=== PATIENT | female | born 1945 | race Caucasian/White ===

== ENCOUNTER 2018-01-22 18:19 | Inpatient (IN) | payer OTHER, MEDICARE ==
[2018-01-22 19:36] LABS: PH,URINE 8.5 (4.5-8); URINE APPEARANCE Clear; URINE BILIRUBIN Negative (NEGATIVE); URINE COLOR Yellow; URINE GLUCOSE (UA) Negative (NEGATIVE); URINE KETONE Negative (NEGATIVE); URINE LEUK ESTERASE 3+ (NEGATIVE); URINE NITRITE Negative (NEGATIVE); URINE PROTEIN 2+ (NEGATIVE); URINE UROBILINOGEN 0.2 (0.2-1.0)
--- NOTE | 2018-01-22 19:36 | PDOC ---
History of Present Illness - General History Source: Patient Exam Limitations: No Limitations - History of Present Illness Initial Comments: 01/22/18 19:38 CC: Abdominal cramping HPI: The patient is a 72 year old female, with a significant past medical history of DM, HTN, HLD, and remote history of kidney stone (x1), who presents to the emergency department with, 4 hours of sudden onset abdominal cramping. She describes her cramping as a constant, 10/10, localized to the lower quadrant of her abdomen with an associated subjective fever. Patient notes that she took 2 suppositories (one slipped out) and GasX for her symptoms, without relief. The patient also endorses taking Lysine and Valtrex for her cold sores which she believes has worsened her constipation. Her last BM was yesterday. She denies recent chills, headache or dizziness. She denies recent nausea or vomit. She denies recent dysuria, frequency, urgency or hematuria. She denies recent chest pain or shortness of breath. Allergies: Bacitracin, neomycin, polymyxin B, Sulfa Past surgical history: Hip replacement 09 Social history: Nonsmoker. Denies EtOH use and recreational drug use. <Marleen Woods - Last Filed: 01/22/18 20:32> <Roland Hardy - Last Filed: 01/23/18 05:15> - General Chief Complaint: Pain Stated Complaint: ABDOMINAL CRAMPS Past History <Marleen Woods - Last Filed: 01/22/18 20:32> - Past Medical History COPD: No GI Disorders: Yes HTN: Yes Hypercholesterolemia: Yes Other medical history: HERPETIC LESIONS - Surgical History GI Surgery: Yes (GORDON ANAL FISSURE) - Suicide/Smoking/Psychosocial Hx Smoking History: Never smoked Hx Alcohol Use: No Drug/Substance Use Hx: No Substance Use Type: None <Roland Hardy - Last Filed: 01/23/18 05:15> - Past Medical History Allergies/Adverse Reactions: Allergies Allergy/AdvReac Type Severity Reaction Status Date / Time bacitracin Allergy Unknown Verified 01/22/18 18:47 [From Neosporin ([id number])] neomycin Allergy Unknown Verified 01/22/18 18:47 [From Neosporin ([id number])] polymyxin B Allergy Unknown Verified 01/22/18 18:47 [From Neosporin ([id number])] Sulfa (Sulfonamide Allergy Unknown Verified 01/22/18 18:47 Antibiotics) Home Medications: Ambulatory Orders Apremilast [Otezla] 30 mg PO BID 01/22/18 Aspirin [Ecotrin] 81 mg PO DAILY 01/22/18 Esomeprazole Magnesium [Nexium 24Hr] 20 mg PO HS 01/22/18 Fenofibrate Nanocrystallized [Fenofibrate] 48 mg PO HS 01/22/18 Insulin Detemir [Levemir Flextouch] 54 unit SQ HS 01/22/18 Losartan/Hydrochlorothiazide [Losartan-Hctz 100-25 mg Tab] 1 each PO DAILY 01/22 Lysine 1,000 mg PO DAILY 01/22/18 Metformin HCl [Metformin HCl ER] 500 mg PO BID 01/22/18 Rosuvastatin Calcium [Crestor] 40 mg PO HS 01/22/18 Turm/Ging/Jose/Yuc/Colin/Meron/Hor [Tumersaid Tablet] 1 each PO DAILY 01/22/18 Ubidecarenone/Vit E Acet [Co Q-10 100 mg Softgel] 1 each PO HS 01/22/18 Valacyclovir HCl [Valtrex] 1,000 mg PO DAILY 01/22/18 Review of Systems - Review of Systems Able to Perform ROS?: Yes Comments:: 01/22/18 19:38 ROS: A complete review of 10 out of 10 review of systems is taken and is negative apart from what is previously mentioned below and in the HPI. <Marleen Woods - Last Filed: 01/22/18 20:32> *Physical Exam - Vital Signs Last Vital Signs Temp Pulse Resp BP Pulse Ox 101.2 F H 100 H 18 138/86 97 01/22/18 19:33 01/22/18 18:20 01/22/18 18:20 01/22/18 18:20 01/22/18 18:20 - Physical Exam Comments: 01/22/18 19:43 Vitals: Triage Vital signs reviewed +General Appearance: Warm to touch. no acute distress, well nourished well developed, Head: Atraumatic, normocephalic Neck: Supple;No Nuchal rigidity Chest Wall: Nontender Cardiac: Regular rate and rhythm, no murmurs, no rubs, no gallops, Lungs: Clear to auscultation bilateral, good air movement bilaterally, + Abdomen: RLQ tenderness to palpation. Soft, nondistended, normal bowel sounds Rectal: Exam deferred Extremities: Full range of motion to all extremities, no cyanosis, clubbing, or edema Skin: Warm and dry, no rashes or lesions, no petechiae Neuro: AOX3; Cranial Nerves 2-12 grossly c intact, Strength intact to all extremities, Sensation intact to all extremities, gait normal Psych: normal mood, normal affect <Marleen Woods - Last Filed: 01/22/18 20:32> - Vital Signs Last Vital Signs Temp Pulse Resp BP Pulse Ox 101.2 F H 100 H 18 138/86 97 01/22/18 19:33 01/22/18 18:20 01/22/18 18:20 01/22/18 18:20 01/22/18 18:20 <Roland Hardy - Last Filed: 01/23/18 05:15> Moderate Sedation - Procedure Monitoring Vital Signs: Procedure Monitoring Vital Signs Temperature 101.2 F H 01/22/18 19:33 Pulse Rate 100 H 01/22/18 18:20 Respiratory Rate 18 01/22/18 18:20 Blood Pressure 138/86 01/22/18 18:20 O2 Sat by Pulse Oximetry (%) 97 01/22/18 18:20 <Marleen Woods - Last Filed: 01/22/18 20:32> - Procedure Monitoring Vital Signs: Procedure Monitoring Vital Signs Temperature 101.2 F H 01/22/18 19:33 Pulse Rate 100 H 01/22/18 18:20 Respiratory Rate 18 01/22/18 18:20 Blood Pressure 138/86 01/22/18 18:20 O2 Sat by Pulse Oximetry (%) 97 01/22/18 18:20 <Roland Hardy - Last Filed: 01/23/18 05:15> ED Treatment Course - LABORATORY CBC & Chemistry Diagram: 01/22/18 19:30 01/22/18 19:30 - ADDITIONAL ORDERS Additional order review: Laboratory Results 01/22/18 18:57 Urine Color Yellow Urine Appearance Clear Urine pH 8.5 H Ur Specific [place] 1.020 Urine Protein 2+ H Urine Glucose (UA) Negative Urine Ketones Negative Urine Blood Trace-intact H Urine Nitrite Negative Urine Bilirubin Negative Urine Urobilinogen 0.2 Ur Leukocyte Esterase 3+ H Urine RBC 2-5 Urine WBC 20-40 Ur Epithelial Cells Few Urine Bacteria 3+ <Marleen Woods - Last Filed: 01/22/18 20:32> - LABORATORY CBC & Chemistry Diagram: 01/22/18 19:30 01/22/18 19:30 - ADDITIONAL ORDERS Additional order review: Laboratory Results 01/22/18 18:57 Urine Color Yellow Urine Appearance Clear Urine pH 8.5 H Ur Specific [place] 1.020 Urine Protein 2+ H Urine Glucose (UA) Negative Urine Ketones Negative Urine Blood Trace-intact H Urine Nitrite Negative Urine Bilirubin Negative Urine Urobilinogen 0.2 Ur Leukocyte Esterase 3+ H <Roland Hardy - Last Filed: 01/23/18 05:15> Medical Decision Making - Medical Decision Making 01/22/18 20:32 72 year old female, with a significant past medical history of DM, HTN, HLD, and remote history of kidney stone (x1), who presents to the emergency department with, 4 hours of sudden onset abdominal cramping Plan is to: Blood cultures Rectal temp EKG IV Tylenol Lactic acid Fluids UA/UC <Marleen Woods - Last Filed: 01/22/18 20:32> - Medical Decision Making 72 years old past medical history significant for diabetes hypertension hyperlipidemia with sudden onset lower abdominal discomfort Positive fever elevated white blood cell count mild tachycardia sepsis criteria met, protocol started. Lactic acid within normal limits A CT abdomen pelvis of the abdomen was performed which demonstrated no acute pathology which is discernibly related to the patient's presenting symptoms. Her urinalysis was positive her physical exam was noted for right-sided abdominal pain there was an incidental finding of some very mild hydro-on the left side which does not correlate with the patient's pain on examination Given fever and tachycardia elevated white blood cell count patient was ordered for broad-spectrum antibiotics. Patient has required multiple doses of IV pain medication to control her abdominal pain given her age and comorbidities we'll admit overnight continue antibiotics hydrate and reassess 01/23/18 05:14 <Roland Hardy - Last Filed: 01/23/18 05:15> *DC/Admit/Observation/Transfer - Attestations Scribe Attestion: 01/22/18 19:38 Documentation prepared by Marleen Woods, acting as medical care administrator for Roland Hardy MD. <Marleen Woods - Last Filed: 01/22/18 20:32> - Discharge Dispostion Decision to Admit order: Yes <Roland Hardy - Last Filed: 01/23/18 05:15> Diagnosis at time of Disposition: Abdominal pain Qualifiers: Abdominal location: right lower quadrant Qualified Code(s): R10.31 - Right lower quadrant pain - Discharge Dispostion Condition at time of disposition: Good
[2018-01-22 19:37] LABS: EPI CELLS FEW /HPF; URINE BACTERIA 3+ /hpf (NEGATIVE); URINE WBC 20-40 (0-5)
[2018-01-22] MEDS ORDERED: SODIUM CHLORIDE 0.9% 1000 ML INFUS.BAG IV ONE ×3 (19:37→23:19)
[2018-01-22] MEDS ORDERED: ACETAMINOPHEN 1000 MG/100 ML VIAL (NON FORMULARY) IVPB ONE (19:37)
[2018-01-22] MEDS ORDERED: PIPERACILLIN/TAZOB 3.375 GM 3.375 GM in DEXTROSE 5%-WATER - 50 ML IVPB ONE (19:38)
[2018-01-22] MEDS ORDERED: ACETAMINOPHEN INJECTION 100 ML IVPB ONE (19:55)
[2018-01-22] MEDS ORDERED: PIPERACILLIN/TAZOBACTAM 3.375 GM VIAL IVPB ONE (19:56)
[2018-01-22 20:02] LABS: BASO % 0.5 % (0-2.0); EOS % 1.4 % (0-4.5); HEMATOCRIT 40.1 % (32.4-45.2); HEMOGLOBIN 12.7 GM/dl (10.7-15.3); LYMPH % 12.4 % (8-40); MCHC 31.7 g/dl (32.0-36.0); MEAN CELL VOLUME 85.1 fl (80-96); MEAN PLT VOLUME 8.1 fl (7.5-11.1); MONO % 6.6 % (3.8-10.2); NEUT % 79.1 % (42.8-82.8); PLATELET COUNT 512 K/MM3 (134-434); RBC 4.71 M/mm3 (3.60-5.2); WHITE BLOOD COUNT 13.6 K/mm3 (4.0-10.8)
[2018-01-22 20:11] LABS: ACTIVATED PTT 25.3 SECONDS (25.2-36.5)
[2018-01-22 20:14] LABS: ALK PHOS 56 U/L (32-92); ANION GAP 9 MMOL/L (8-16); BILIRUBIN,TOTAL 0.6 mg/dl (0.2-1.0); BLOOD UREA NITROGEN 23 mg/dl (7-18); CALCIUM 9.9 mg/dl (8.4-10.2); CHLORIDE 99 mmol/L (98-107); CO2 25 mmol/L (22-28); CREATININE 1.6 mg/dl (0.6-1.3); GLUCOSE,RANDOM 132 mg/dl (74-106); POTASSIUM 4.3 mmol/L (3.5-5.1); SGOT/AST 24 U/L (10-42); SGPT/ALT 17 U/L (10-40); SODIUM 133 mmol/L (136-145); TOT PROT 7.5 g/dl (6.4-8.3)
[2018-01-22 20:16] LABS: INR 1.13 (0.82-1.09); PROTHROMBIN TIME (PATIENT) 12.6 SEC (10.2-13.0)
[2018-01-22] MEDS ORDERED: morphine CARPU-JECT 4 MG/1 ML DISP.SYRIN IVPUSH ONE (22:33)
[2018-01-22] MEDS ORDERED: morphine SULFATE 4 MG/ML VIAL ONE (22:37)
[2018-01-23 02:03] VITALS: BMI 27.5
[2018-01-23] MEDS ORDERED: CEFTRIAXONE 1,000 MG in DEXTROSE 5%-WATER - 50 ML IVPB SCH (08:45)
[2018-01-23] MEDS: CEFTRIAXONE 1,000 MG in DEXTROSE 5%-WATER - 50 ML IVPB SCH (09:38)
[2018-01-23] MEDS: ASPIRIN COATED 81 MG TABLET.EC PO SCH (09:38)
[2018-01-23] MEDS ORDERED: LYSINE 1000 MG PO SCH (10:00)
[2018-01-23] MEDS ORDERED: valACYclovir HCL 500 MG TABLET (FP) PO SCH ×2 (10:00)
[2018-01-23] MEDS ORDERED: PATIENT'S OWN MEDICATION (NON-FORMULARY) (Apremilast [Otezla] 30 MG) PO SCH (10:00)
[2018-01-23 11:43] LABS: BASO % 0.5 % (0-2.0); EOS % 1.8 % (0-4.5); HEMATOCRIT 36.5 % (32.4-45.2); HEMOGLOBIN 11.9 GM/dl (10.7-15.3); LYMPH % 14.5 % (8-40); MCHC 32.6 g/dl (32.0-36.0); MEAN CELL VOLUME 85.9 fl (80-96); MEAN PLT VOLUME 7.7 fl (7.5-11.1); MONO % 7.1 % (3.8-10.2); NEUT % 76.1 % (42.8-82.8); PLATELET COUNT 422 K/MM3 (134-434); RBC 4.25 M/mm3 (3.60-5.2); RDW 15.9 % (11.6-15.6); WHITE BLOOD COUNT 9.8 K/mm3 (4.0-10.8)
--- NOTE | 2018-01-23 11:45 | HP ---
CHIEF COMPLAINT: PCP: HISTORY OF PRESENT ILLNESS: Kori Lovelace is a 72 year old female, with a significant past medical history of DM, HTN, HLD, and remote history of kidney stone (x1), who presented to the emergency department last night with, 4 hours of sudden onset abdominal cramping. She describes her cramping as a constant, 10/10, localized to the lower quadrant of her abdomen with an associated subjective fever. ED note reviewed, pt seen in room this morning, pt reports abd pain has decreased in intensity but still present, denies n/v, diarrhea, cold sore noted on upper lip. ER course was notable for: (1)Leukocystosis (2)Febrile (3)+ UA Recent Travel: PAST MEDICAL HISTORY: PAST SURGICAL HISTORY: Social History: Smoking:denies Alcohol:denies Drugs: denies Family History: Allergies bacitracin [From Neosporin ([id number])] Allergy (Unknown, Verified 01/22/18 18:47) neomycin [From Neosporin ([id number])] Allergy (Unknown, Verified 01/22/18 18 :47) polymyxin B [From Neosporin ([id number])] Allergy (Unknown, Verified 18:47) Sulfa (Sulfonamide Antibiotics) Allergy (Unknown, Verified 01/22/18 18:47) HOME MEDICATIONS: Home Medications Medication Instructions Recorded Apremilast [Otezla] 30 mg PO BID 01/22/18 Aspirin [Ecotrin] 81 mg PO DAILY 01/22/18 Esomeprazole Magnesium [Nexium 20 mg PO HS 01/22/18 24Hr] Fenofibrate Nanocrystallized 48 mg PO HS 01/22/18 [Fenofibrate] Insulin Detemir [Levemir Flextouch] 54 unit SQ HS 01/22/18 Losartan/Hydrochlorothiazide 1 each PO DAILY 01/22/18 [Losartan-Hctz 100-25 mg Tab] Lysine 1,000 mg PO DAILY 01/22/18 Metformin HCl [Metformin HCl ER] 500 mg PO BID 01/22/18 Rosuvastatin Calcium [Crestor] 40 mg PO HS 01/22/18 Turm/Ging/Jose/Yuc/Colin/Meron/Hor 1 each PO DAILY 01/22/18 [Tumersaid Tablet] Ubidecarenone/Vit E Acet [Co Q-10 1 each PO HS 01/22/18 100 mg Softgel] Valacyclovir HCl [Valtrex] 1,000 mg PO DAILY 01/22/18 REVIEW OF SYSTEMS CONSTITUTIONAL: Absent: fever, chills, diaphoresis, generalized weakness, malaise, loss of appetite, weight change HEENT: Absent: rhinorrhea, nasal congestion, throat pain, throat swelling, difficulty swallowing, mouth swelling, ear pain, eye pain, visual changes CARDIOVASCULAR: Absent: chest pain, syncope, palpitations, irregular heart rate, lightheadedness , peripheral edema RESPIRATORY: Absent: cough, shortness of breath, dyspnea with exertion, orthopnea, wheezing, stridor, hemoptysis GASTROINTESTINAL: Absent: abdominal pain, abdominal distension, nausea, vomiting, diarrhea, constipation, melena, hematochezia GENITOURINARY: Absent: dysuria, frequency, urgency, hesitancy, hematuria, flank pain, genital pain MUSCULOSKELETAL: Absent: myalgia, arthralgia, joint swelling, back pain, neck pain SKIN: cold sore on lip Absent: rash, itching, pallor HEMATOLOGIC/IMMUNOLOGIC: Absent: easy bleeding, easy bruising, lymphadenopathy, frequent infections ENDOCRINE: Absent: unexplained weight gain, unexplained weight loss, heat intolerance, cold intolerance NEUROLOGIC: Absent: headache, focal weakness or paresthesias, dizziness, unsteady gait, seizure, mental status changes, bladder or bowel incontinence PSYCHIATRIC: Absent: anxiety, depression, suicidal or homicidal ideation, hallucinations. PHYSICAL EXAMINATION Vital Signs - 24 hr 01/22/18 01/22/18 01/22/18 18:20 19:33 21:20 Temperature 98.9 F 101.2 F H 99.9 F H Pulse Rate 100 H Pulse Rate [ 89 Left Radial] Respiratory 18 16 Rate Blood Pressure 138/86 Blood Pressure 126/88 [Right Arm] O2 Sat by Pulse 97 98 Oximetry (%) 01/23/18 01/23/18 01/23/18 00:38 00:44 06:00 Temperature 98.1 F 99.4 F Pulse Rate 86 81 Pulse Rate [ Left Radial] Respiratory 18 18 Rate Blood Pressure 123/66 129/70 Blood Pressure [Right Arm] O2 Sat by Pulse 98 97 Oximetry (%) GENERAL: Awake, alert, and fully oriented, in no acute distress. HEAD: Normal with no signs of trauma. EYES: Pupils equal, round and reactive to light, extraocular movements intact, sclera anicteric, conjunctiva clear. No lid lag. EARS, NOSE, THROAT: Ears normal, nares patent, oropharynx clear without exudates. Moist mucous membranes. NECK: Normal range of motion, supple without lymphadenopathy, JVD, or masses. LUNGS: Breath sounds equal, clear to auscultation bilaterally. No wheezes, and no crackles. No accessory muscle use. HEART: Regular rate and rhythm, normal S1 and S2 without murmur, rub or gallop. ABDOMEN: + Lower quad abd pain, Soft, nontender, not distended, normoactive bowel sounds, no guarding, no rebound, no masses. No hepatomegaly or splenomegaly. MUSCULOSKELETAL: Normal range of motion at all joints. No bony deformities or tenderness. No CVA tenderness. UPPER EXTREMITIES: 2+ pulses, warm, well-perfused. No cyanosis. No clubbing. No peripheral edema. LOWER EXTREMITIES: 2+ pulses, warm, well-perfused. No calf tenderness. No peripheral edema. NEUROLOGICAL: Cranial nerves II-XII intact. Normal speech. Normal gait. PSYCHIATRIC: Cooperative. Good eye contact. Appropriate mood and affect. SKIN: + vesicle on upper lip, Warm, dry, normal turgor, no rashes or lesions noted, normal capillary refill. Laboratory Results - last 24 hr 01/22/18 01/22/18 01/22/18 18:57 19:30 19:30 WBC 13.6 H RBC 4.71 Hgb 12.7 Hct 40.1 MCV 85.1 MCH 27.0 MCHC 31.7 L RDW 16.0 H Plt Count 512 H MPV 8.1 Absolute Neuts (auto) 10.7 Neutrophils % 79.1 Lymphocytes % 12.4 Monocytes % 6.6 Eosinophils % 1.4 Basophils % 0.5 PT with INR 12.6 INR 1.13 PTT (Actin FS) 25.3 Sodium Potassium Chloride Carbon Dioxide Anion Gap BUN Creatinine Creat Clearance w eGFR Random Glucose Lactic Acid Calcium Total Bilirubin AST ALT Alkaline Phosphatase Troponin I Total Protein Albumin Urine Color Yellow Urine Appearance Clear Urine pH 8.5 H Ur Specific [place] 1.020 Urine Protein 2+ H Urine Glucose (UA) Negative Urine Ketones Negative Urine Blood Trace-intact H Urine Nitrite Negative Urine Bilirubin Negative Urine Urobilinogen 0.2 Ur Leukocyte Esterase 3+ H Urine RBC 2-5 Urine WBC 20-40 Ur Epithelial Cells Few Urine Bacteria 3+ 01/22/18 01/22/18 01/22/18 19:30 19:30 20:15 WBC RBC Hgb Hct MCV MCH MCHC RDW Plt Count MPV Absolute Neuts (auto) Neutrophils % Lymphocytes % Monocytes % Eosinophils % Basophils % PT with INR INR PTT (Actin FS) Sodium 133 L Potassium 4.3 Chloride 99 Carbon Dioxide 25 Anion Gap 9 BUN 23 H Creatinine 1.6 H Creat Clearance w eGFR 31.78 Random Glucose 132 H Lactic Acid 1.4 Calcium 9.9 Total Bilirubin 0.6 AST 24 ALT 17 Alkaline Phosphatase 56 Troponin I < 0.03 Total Protein 7.5 Albumin 4.0 Urine Color Urine Appearance Urine pH Ur Specific [place] Urine Protein Urine Glucose (UA) Urine Ketones Urine Blood Urine Nitrite Urine Bilirubin Urine Urobilinogen Ur Leukocyte Esterase Urine RBC Urine WBC Ur Epithelial Cells Urine Bacteria Kori Lovelace is a 72 yr old F,medical condition DM, HTN, HLD, and remote history of kidney stone (x1) admitted for Admitting Diagnosis UTI Active Problems HTN HLD DM A/P: #UTI -IVF -IV Rocephin -blood, urine cx pending -started on pyridiumx2 days -CT scan unremarkable -lactic wnl #HTN #HLD -on statin -losartan/hctz #DM -on levemir 54 units -metformin on hold -FS AC/HS #Herpes Simplex I -on PO valcyclovir Full Code Visit type - Emergency Visit Emergency Visit: Yes ED Registration Date: 01/23/18 Care time: The patient presented to the Emergency Department on the above date and was hospitalized for further evaluation of their emergent condition. - New Patient This patient is new to me today: Yes Date on this admission: 01/23/18 - Critical Care Critical Care patient: No
[2018-01-23 11:52] LABS: ALBUMIN 3.1 g/dl (3.5-5.0); ALK PHOS 50 U/L (32-92); ANION GAP 7 MMOL/L (8-16); BILIRUBIN,TOTAL 0.4 mg/dl (0.2-1.0); BLOOD UREA NITROGEN 23 mg/dl (7-18); CALCIUM 8.7 mg/dl (8.4-10.2); CHLORIDE 103 mmol/L (98-107); CO2 23 mmol/L (22-28); CREATININE 2.8 mg/dl (0.6-1.3); GLUCOSE,RANDOM 179 mg/dl (74-106); POTASSIUM 4.6 mmol/L (3.5-5.1); SGOT/AST 26 U/L (10-42); SGPT/ALT 14 U/L (10-40); SODIUM 133 mmol/L (136-145); TOT PROT 6.1 g/dl (6.4-8.3)
[2018-01-23] MEDS: PHENAZOPYRIDINE HCL 100 MG TABLET (FP) PO SCH ×2 (12:01→18:10)
--- NOTE | 2018-01-23 17:26 | EKG ---
Test Reason : Blood Pressure : / mmHG Vent. Rate : 087 BPM Atrial Rate : 087 BPM P-R Int : 128 ms QRS Dur : 112 ms QT Int : 436 ms P-R-T Axes : 044 -04 -13 degrees QTc Int : 524 ms NORMAL SINUS RHYTHM INCOMPLETE RIGHT BUNDLE BRANCH BLOCK ABNORMAL ECG NO PREVIOUS ECGS AVAILABLE Confirmed by MD TASIA, KACI ([id number]) on 01/23/2018 5:26:25 PM Referred By: MD GRESHAM Confirmed By:KACI DOZIER MD
[2018-01-23] MEDS: LOSARTAN 50MG/HCTZ 12.5MG 1 TAB (FP) PO SCH (18:10)
[2018-01-23] MEDS: ROSUVASTATIN CA 40 MG TABLET PO SCH (21:44)
[2018-01-23] MEDS: INSULIN (LEVEMIR) 100 UNITS/ML UNITS SQ SCH (21:44)
[2018-01-23] MEDS: PANTOPRAZOLE 20 MG TABLET (FP) PO SCH (21:45)
[2018-01-23] MEDS: FENOFIBRIC ACID 45 MG CAP PO SCH (22:25)
[2018-01-24] MEDS: ACETAMINOPHEN 325 MG TABLET (FP) PO PRN (06:27)
[2018-01-24 09:25] LABS: BASO % 0.7 % (0-2.0); EOS % 3.3 % (0-4.5); HEMATOCRIT 33.6 % (32.4-45.2); LYMPH % 20.6 % (8-40); MCH 27.9 pg (25.7-33.7); MCHC 32.7 g/dl (32.0-36.0); MEAN CELL VOLUME 85.4 fl (80-96); MEAN PLT VOLUME 7.9 fl (7.5-11.1); MONO % 6.9 % (3.8-10.2); NEUT % 68.5 % (42.8-82.8); PLATELET COUNT 418 K/MM3 (134-434); RBC 3.94 M/mm3 (3.60-5.2); RDW 16.1 % (11.6-15.6); WHITE BLOOD COUNT 7.8 K/mm3 (4.0-10.8)
[2018-01-24 09:41] LABS: ALBUMIN 2.8 g/dl (3.5-5.0); ALK PHOS 43 U/L (32-92); ANION GAP 13 MMOL/L (8-16); BILIRUBIN,TOTAL 0.6 mg/dl (0.2-1.0); BLOOD UREA NITROGEN 23 mg/dl (7-18); CALCIUM 8.9 mg/dl (8.4-10.2); CHLORIDE 106 mmol/L (98-107); CO2 22 mmol/L (22-28); CREATININE 2.6 mg/dl (0.6-1.3); GLUCOSE,RANDOM 102 mg/dl (74-106); MAGNESIUM 2.1 mg/dL (1.8-2.4); SGOT/AST 17 U/L (10-42); SGPT/ALT 12 U/L (10-40); SODIUM 141 mmol/L (136-145); TOT PROT 5.5 g/dl (6.4-8.3)
[2018-01-24] MEDS: LOSARTAN 50MG/HCTZ 12.5MG 1 TAB (FP) PO SCH (10:37)
[2018-01-24] MEDS: PHENAZOPYRIDINE HCL 100 MG TABLET (FP) PO SCH ×3 (10:39→18:36)
[2018-01-24] MEDS: ASPIRIN COATED 81 MG TABLET.EC PO SCH (10:39)
[2018-01-24] MEDS: CEFTRIAXONE 1,000 MG in DEXTROSE 5%-WATER - 50 ML IVPB SCH (10:39)
[2018-01-24] MEDS: SODIUM CHLORIDE 1,000 ML IV SCH (10:40)
--- NOTE | 2018-01-24 11:24 | PN ---
Physical Exam: SUBJECTIVE: Patient seen and examined, still c/o discomfort in lower pelvic area , c/o constipation x 4 days, Labs discussed with patient OBJECTIVE: Vital Signs Period Temp Pulse Resp BP Sys/Guy Pulse Ox Last 24 Hr 98.2 F-99.4 F 72-83 16-17 114-132/62-74 94-98 GENERAL: The patient is awake, alert, and fully oriented, in no acute distress. HEAD: Normal with no signs of trauma. EYES: PERRL, extraocular movements intact, sclera anicteric, conjunctiva clear. No ptosis. ENT: Ears normal, nares patent, oropharynx clear without exudates, moist mucous membranes. NECK: Trachea midline, full range of motion, supple. LUNGS: Breath sounds equal, clear to auscultation bilaterally, no wheezes, no crackles, no accessory muscle use. HEART: Regular rate and rhythm, S1, S2 without murmur, rub or gallop. ABDOMEN: Soft, nontender, nondistended, normoactive bowel sounds, no guarding, no rebound, no hepatosplenomegaly, no masses. EXTREMITIES: 2+ pulses, warm, well-perfused, no edema. NEUROLOGICAL: Cranial nerves II through XII grossly intact. Normal speech, gait not observed. PSYCH: Normal mood, normal affect. SKIN: Warm, dry, normal turgor, no rashes or lesions noted Laboratory Results - last 24 hr 01/23/18 01/23/18 01/23/18 11:07 11:07 18:09 WBC 9.8 RBC 4.25 Hgb 11.9 Hct 36.5 MCV 85.9 MCH 28.0 MCHC 32.6 RDW 15.9 H Plt Count 422 MPV 7.7 Absolute Neuts (auto) 7.5 Neutrophils % 76.1 Lymphocytes % 14.5 Monocytes % 7.1 Eosinophils % 1.8 Basophils % 0.5 Sodium 133 L Potassium 4.6 Chloride 103 Carbon Dioxide 23 Anion Gap 7 L BUN 23 H Creatinine 2.8 H Creat Clearance w eGFR 16.66 POC Glucometer 269 Random Glucose 179 H D Calcium 8.7 Magnesium Total Bilirubin 0.4 AST 26 ALT 14 Alkaline Phosphatase 50 Total Protein 6.1 L Albumin 3.1 L 01/23/18 01/24/18 01/24/18 21:43 06:00 06:00 WBC 7.8 RBC 3.94 Hgb 11.0 Hct 33.6 MCV 85.4 MCH 27.9 MCHC 32.7 RDW 16.1 H Plt Count 418 MPV 7.9 Absolute Neuts (auto) 5.3 Neutrophils % 68.5 Lymphocytes % 20.6 Monocytes % 6.9 Eosinophils % 3.3 Basophils % 0.7 Sodium 141 Potassium 4.0 Chloride 106 Carbon Dioxide 22 Anion Gap 13 BUN 23 H Creatinine 2.6 H Creat Clearance w eGFR 18.15 POC Glucometer 154 Random Glucose 102 D Calcium 8.9 Magnesium 2.1 Total Bilirubin 0.6 AST 17 D ALT 12 Alkaline Phosphatase 43 Total Protein 5.5 L Albumin 2.8 L 01/24/18 06:22 WBC RBC Hgb Hct MCV MCH MCHC RDW Plt Count MPV Absolute Neuts (auto) Neutrophils % Lymphocytes % Monocytes % Eosinophils % Basophils % Sodium Potassium Chloride Carbon Dioxide Anion Gap BUN Creatinine Creat Clearance w eGFR POC Glucometer 116 Random Glucose Calcium Magnesium Total Bilirubin AST ALT Alkaline Phosphatase Total Protein Albumin Active Medications Generic Name Dose Route Start Last Admin Trade Name Freq PRN Reason Stop Dose Admin Acetaminophen 650 mg 01/23/18 06:50 01/24/18 06:27 Tylenol - PO 650 mg Q6H PRN Administration Fever Or Pain Aspirin 81 mg 01/23/18 10:00 01/24/18 10:39 Ecotrin - PO 81 mg DAILY KAREN Administration Docusate Sodium 100 mg 01/24/18 11:30 Colace - PO BID KAREN Fenofibric Acid 45 mg 01/23/18 22:00 01/23/18 22:25 Trilipix - PO 45 mg HS KAREN Administration HCTZ/Losartan Potassium 2 tab 01/23/18 16:15 01/24/18 10:37 Hyzaar - PO 2 tab DAILY KAREN Administration Ceftriaxone Sodium 1,000 mg/ 50 mls @ 100 mls/hr 01/23/18 08:45 01/24/18 10: 39 Dextrose IVPB 100 mls/hr ONCE KAREN Administration Sodium Chloride 1,000 mls @ 100 mls/hr 01/24/18 10:30 01/24/18 10:40 Normal Saline - IV 100 mls/hr ASDIR KAREN Administration Insulin Detemir 54 units 01/23/18 22:00 01/23/18 21:44 Levemir Vial SQ 54 units HS KAREN Administration Non-Formulary Medication 30 mg 01/23/18 10:00 Apremilast [Otezla] PO BID KAREN Non-Formulary Medication 1,000 mg 01/23/18 10:00 Lysine [Lysine] PO DAILY KAREN Pantoprazole Sodium 20 mg 01/23/18 22:00 01/23/18 21:45 Protonix - PO 20 mg HS KAREN Administration Phenazopyridine HCl 100 mg 01/23/18 13:00 01/24/18 10:39 Pyridium - PO 01/25/18 10:00 100 mg PC KAREN Administration Polyethylene Glycol 17 gm 01/24/18 11:30 Miralax (For Daily Use) - PO DAILY KAREN Rosuvastatin Calcium 40 mg 01/23/18 22:00 01/23/18 21:44 Crestor - PO 40 mg HS KAREN Administration ASSESSMENT/PLAN: Kori Lovelace is a 72 yr old F,medical condition DM, HTN, HLD, and remote history of kidney stone (x1) admitted for Admitting Diagnosis UTI Active Problems HTN HLD DM A/P: #UTI -IVF -IV Rocephin -blood no growth -started on pyridium x2 days -CT scan mild hydronephrosis -lactic wnl #AGAPITO -monitor BMP -IVF -Renal US -renal consult as per labs/US #Constipation -laxatives, colace #Pulm nodule -0.9 cm nodule noted -no previous imaging -can follow up as outpatient #HTN #HLD -on statin -losartan/hctz #DM -on levemir 54 units -metformin on hold -FS AC/HS #Herpes Simplex I -on PO valcyclovir Disposition: Requires inpatient treatment. Full Code Visit type - Emergency Visit Emergency Visit: Yes ED Registration Date: 01/22/18 Care time: The patient presented to the Emergency Department on the above date and was hospitalized for further evaluation of their emergent condition. - New Patient This patient is new to me today: No - Critical Care Critical Care patient: No
[2018-01-24] MEDS: DOCUSATE SODIUM 100 MG CAPSULE (FP) PO SCH ×2 (12:00→21:27)
[2018-01-24] MEDS: POLYETHYLENE GLYCOL 3350 119 GM BTL PO SCH (12:00)
[2018-01-24] MEDS: ROSUVASTATIN CA 40 MG TABLET PO SCH (21:27)
[2018-01-24] MEDS: PANTOPRAZOLE 20 MG TABLET (FP) PO SCH (21:27)
[2018-01-24] MEDS: FENOFIBRIC ACID 45 MG CAP PO SCH (21:29)
[2018-01-24] MEDS ORDERED: PT OWN MED DRAWER 7, Y5N ONE (21:29)
[2018-01-24] MEDS: guaiFENesin/D-METHORPHAN HB 10 ML UNIT-DOSE CUPS PO PRN (21:36)
[2018-01-25] MEDS: INSULIN SLIDING SCALE (NOVOLOG) 1 VIAL SQ SCH ×4 (06:47→21:40)
[2018-01-25] MEDS: CEFTRIAXONE 1,000 MG in DEXTROSE 5%-WATER - 50 ML IVPB SCH (08:25)
--- NOTE | 2018-01-25 09:48 | PN ---
Physical Exam: SUBJECTIVE: Patient seen and examined at bedside. Has had several large bowel movements in the past 24 hours. Abdomial pain resolved. OBJECTIVE: Vital Signs Period Temp Pulse Resp BP Sys/Guy Pulse Ox Last 24 Hr 98 F-99.7 F 71-88 16-19 119-153/63-72 92-95 GENERAL: The patient is awake, alert, and fully oriented, in no acute distress. LUNGS: Breath sounds equal, clear to auscultation bilaterally, no wheezes, no crackles, no accessory muscle use. HEART: Regular rate and rhythm, S1, S2, no m/r/g ABDOMEN: Soft, nontender, nondistended, normoactive bowel sounds EXTREMITIES: 2+ pulses, warm, well-perfused, no edema. NEUROLOGICAL: Cranial nerves II through XII grossly intact. Normal speech, steady gait. CBCD WBC 8.7 K/mm3 (4.0-10.8) 01/25/18 11:08 RBC 4.04 M/mm3 (3.60-5.2) 01/25/18 11:08 Hgb 11.0 GM/dl (10.7-15.3) 01/25/18 11:08 Hct 34.4 % (32.4-45.2) 01/25/18 11:08 MCV 85.2 fl (80-96) 01/25/18 11:08 MCHC 32.1 g/dl (32.0-36.0) 01/25/18 11:08 RDW 16.3 % (11.6-15.6) H 01/25/18 11:08 Plt Count 451 K/MM3 (134-434) H 01/25/18 11:08 MPV 7.9 fl (7.5-11.1) 01/25/18 11:08 CMP Sodium 140 mmol/L (136-145) 01/25/18 11:08 Potassium 4.4 mmol/L (3.5-5.1) 01/25/18 11:08 Chloride 111 mmol/L (98-107) H 01/25/18 11:08 Carbon Dioxide 25 mmol/L (22-28) 01/25/18 11:08 Anion Gap 4 MMOL/L (8-16) L 01/25/18 11:08 BUN 16 mg/dl (7-18) 01/25/18 11:08 Creatinine 1.7 mg/dl (0.6-1.3) H 01/25/18 11:08 Creat Clearance w eGFR 29.63 (>60) 01/25/18 11:08 Calcium 9.2 mg/dl (8.4-10.2) 01/25/18 11:08 Total Bilirubin 0.4 mg/dl (0.2-1.0) 01/25/18 11:08 AST 19 U/L (10-42) 01/25/18 11:08 ALT 14 U/L (10-40) 01/25/18 11:08 Alkaline Phosphatase 46 U/L (32-92) 01/25/18 11:08 Total Protein 6.1 g/dl (6.4-8.3) L 01/25/18 11:08 Albumin 3.0 g/dl (3.5-5.0) L 01/25/18 11:08 Active Medications Generic Name Dose Route Start Last Admin Trade Name Freq PRN Reason Stop Dose Admin Acetaminophen 650 mg 01/23/18 06:50 01/24/18 06:27 Tylenol - PO 650 mg Q6H PRN Administration Fever Or Pain Aspirin 81 mg 01/23/18 10:00 01/24/18 10:39 Ecotrin - PO 81 mg DAILY KAREN Administration Docusate Sodium 100 mg 01/24/18 11:30 01/24/18 21:27 Colace - PO 100 mg BID KAREN Administration Fenofibric Acid 45 mg 01/23/18 22:00 01/24/18 21:29 Trilipix - PO 45 mg HS KAREN Administration Guaifenesin 10 ml 01/24/18 20:36 01/24/18 21:36 Robitussin Dm - PO 10 ml Q6H PRN Administration COUGH HCTZ/Losartan Potassium 2 tab 01/23/18 16:15 01/24/18 10:37 Hyzaar - PO 2 tab DAILY KAREN Administration Ceftriaxone Sodium 1,000 mg/ 50 mls @ 100 mls/hr 01/23/18 08:45 01/24/18 10: 39 Dextrose IVPB 100 mls/hr ONCE KAREN Administration Sodium Chloride 1,000 mls @ 100 mls/hr 01/24/18 10:30 01/24/18 10:40 Normal Saline - IV 100 mls/hr ASDIR KAREN Administration Insulin Aspart 1 vial 01/25/18 07:00 01/25/18 06:47 Novolog Vial Sliding Scale - SQ Not Given ACHS [facility] Protocol Insulin Detemir 54 units 01/23/18 22:00 01/23/18 21:44 Levemir Vial SQ 54 units HS KAREN Administration Non-Formulary Medication 30 mg 01/23/18 10:00 Apremilast [Otezla] PO BID KAREN Non-Formulary Medication 1,000 mg 01/23/18 10:00 Lysine [Lysine] PO DAILY KAREN Pantoprazole Sodium 20 mg 01/23/18 22:00 01/24/18 21:27 Protonix - PO 20 mg HS KAREN Administration Phenazopyridine HCl 100 mg 01/23/18 13:00 01/24/18 18:36 Pyridium - PO 01/25/18 10:00 100 mg PC KAREN Administration Polyethylene Glycol 17 gm 01/24/18 11:30 01/24/18 12:00 Miralax (For Daily Use) - PO 17 gm DAILY KAREN Administration Rosuvastatin Calcium 40 mg 01/23/18 22:00 01/24/18 21:27 Crestor - PO 40 mg HS KAREN Administration ASSESSMENT/PLAN 72 year-old woman with a PMH significant for HTN, HLD, IDDM, renal calculi (x 7 years), 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 Admitted for diffuse abdominal pain, likely multifactorial. Chronic constipation --has had several large BMs in past 24 hours --abdominal pain resolved --continue bowel regimen UTI --3+leuks, 20-40 WBCs --empiric antibiotics were started prior to culture being collected --defervesced 01/23, leukocytosis resolved --continue ceftriaxone (day #3) --culture pending Possible left hydronephrosis h/o renal colic --01/22 CTAP: subtle minimal left hydro, no definite ureteral dilitation, no obvious calculi; evaluation of the distal left ureter as well as the entire lower one-third of the pelvis obscured due to artifact from left hip prosthesis --01/25 US renal: mild left hydro --continue IV fluids --urology consult AGAPITO --Cr 1.6 on admission, baseline unknown --Cr jumped to 2.8, has trended back down to 1.7 today --will continue IV fluids --possible passed a stone? or retention secondary to constipation? urinating freely now, clear yellow urine Hypertension --BP stable --continue HCTZ/Losartan Hyperlipidemia --contnue Crestor, fenofibric acid IDDM --Levemir 54U qhs --Novolog sliding scale coverage Anemia secondary to lower GI bleed --6 years ago had EDG and colon with Dr. Jarrett at [place] as part of an anemia workup; found several small bleeding vessels in colon, cauterized; no further problems; there were no reported polyps --no signs or symptoms of GI bleed --h/h stable FEN Fluids: NS @ 100mL/hr Electrolytes: replete as indicatd Nutrition: diabetic, low sodium DVT prophylaxis: subq heparin Physical therapy Dispo: continues to require inpatient care. Full code. Visit type - Emergency Visit Emergency Visit: Yes ED Registration Date: 01/22/18 Care time: The patient presented to the Emergency Department on the above date and was hospitalized for further evaluation of their emergent condition. - New Patient This patient is new to me today: Yes Date on this admission: 01/25/18 - Critical Care Critical Care patient: No
[2018-01-25] MEDS: PHENAZOPYRIDINE HCL 100 MG TABLET (FP) PO SCH (10:13)
[2018-01-25] MEDS: DOCUSATE SODIUM 100 MG CAPSULE (FP) PO SCH ×2 (10:13→21:32)
[2018-01-25] MEDS: LOSARTAN 50MG/HCTZ 12.5MG 1 TAB (FP) PO SCH (10:14)
[2018-01-25] MEDS: POLYETHYLENE GLYCOL 3350 119 GM BTL PO SCH (10:14)
[2018-01-25] MEDS: ASPIRIN COATED 81 MG TABLET.EC PO SCH (10:14)
[2018-01-25 11:40] LABS: BASO % 0.6 % (0-2.0); EOS % 4.3 % (0-4.5); HEMATOCRIT 34.4 % (32.4-45.2); LYMPH % 18.8 % (8-40); MCH 27.4 pg (25.7-33.7); MCHC 32.1 g/dl (32.0-36.0); MEAN CELL VOLUME 85.2 fl (80-96); MEAN PLT VOLUME 7.9 fl (7.5-11.1); MONO % 5.3 % (3.8-10.2); PLATELET COUNT 451 K/MM3 (134-434); RBC 4.04 M/mm3 (3.60-5.2); RDW 16.3 % (11.6-15.6); WHITE BLOOD COUNT 8.7 K/mm3 (4.0-10.8)
[2018-01-25 11:43] LABS: ALK PHOS 46 U/L (32-92); ANION GAP 4 MMOL/L (8-16); BILIRUBIN,TOTAL 0.4 mg/dl (0.2-1.0); BLOOD UREA NITROGEN 16 mg/dl (7-18); CALCIUM 9.2 mg/dl (8.4-10.2); CHLORIDE 111 mmol/L (98-107); CO2 25 mmol/L (22-28); CREATININE 1.7 mg/dl (0.6-1.3); GLUCOSE,RANDOM 121 mg/dl (74-106); POTASSIUM 4.4 mmol/L (3.5-5.1); SGOT/AST 19 U/L (10-42); SGPT/ALT 14 U/L (10-40); SODIUM 140 mmol/L (136-145); TOT PROT 6.1 g/dl (6.4-8.3)
[2018-01-25 12:50] LABS: URINE APPEARANCE Clear; URINE BILIRUBIN Negative (NEGATIVE); URINE COLOR Yellow; URINE GLUCOSE (UA) Trace (NEGATIVE); URINE KETONE Negative (NEGATIVE); URINE LEUK ESTERASE 1+ (NEGATIVE); URINE NITRITE Positive (NEGATIVE); URINE PROTEIN Negative (NEGATIVE); URINE UROBILINOGEN 0.2 (0.2-1.0)
[2018-01-25 12:51] LABS: EPI CELLS 2+ /HPF; URINE BACTERIA 2+ /hpf (NEGATIVE)
[2018-01-25] MEDS ORDERED: PT OWN MED DRAWER 7, Y5N ONE (20:50)
[2018-01-25] MEDS: PANTOPRAZOLE 20 MG TABLET (FP) PO SCH (21:31)
[2018-01-25] MEDS: ROSUVASTATIN CA 40 MG TABLET PO SCH (21:31)
[2018-01-25] MEDS: INSULIN (LEVEMIR) 100 UNITS/ML UNITS SQ SCH (21:32)
[2018-01-25] MEDS: HEPARIN NA (PORCINE) 5,000 UNITS/ML 1ML VIAL SQ SCH (21:32)
[2018-01-25] MEDS: FENOFIBRIC ACID 45 MG CAP PO SCH (21:34)
[2018-01-26] MEDS: INSULIN SLIDING SCALE (NOVOLOG) 1 VIAL SQ SCH ×4 (06:13→21:49)
[2018-01-26] MEDS: HEPARIN NA (PORCINE) 5,000 UNITS/ML 1ML VIAL SQ SCH ×3 (06:22→21:49)
--- NOTE | 2018-01-26 07:59 | CON.GU ---
Consult Consult Specialty:: Referred by:: Almas Reason for Consultation:: L hydronephrosis - History of Present Illness Chief Complaint: abd pain/cramps History of Present Illness: 72 year old female, with a significant past medical history of DM, HTN, HLD, and remote history of kidney stone (x1), who presented to the emergency department last night with, 4 hours of sudden onset abdominal cramping. She describes her cramping as a constant, 10/10, localized to the lower quadrant of her abdomen with an associated subjective fever. CTAP showd mild L hydro and she was found to have UTI and cons req. ER course was notable for: (1)Leukocystosis (2)Febrile (3)+ UA - History Source History Provided By: Medical Record Limitations to Obtaining History: No Limitations - Alcohol/Substance Use Hx Alcohol Use: No - Smoking History Smoking history: Never smoked Home Medications - Allergies Allergies/Adverse Reactions: Allergies Allergy/AdvReac Type Severity Reaction Status Date / Time bacitracin Allergy Unknown Verified 01/22/18 18:47 [From Neosporin ([id number])] neomycin Allergy Unknown Verified 01/22/18 18:47 [From Neosporin ([id number])] polymyxin B Allergy Unknown Verified 01/22/18 18:47 [From Neosporin ([id number])] Sulfa (Sulfonamide Allergy Unknown Verified 01/22/18 18:47 Antibiotics) - Home Medications Home Medications: Ambulatory Orders Apremilast [Otezla] 30 mg PO BID 01/22/18 Aspirin [Ecotrin] 81 mg PO DAILY 01/22/18 Esomeprazole Magnesium [Nexium 24Hr] 20 mg PO HS 01/22/18 Fenofibrate Nanocrystallized [Fenofibrate] 48 mg PO HS 01/22/18 Insulin Detemir [Levemir Flextouch] 54 unit SQ HS 01/22/18 Losartan/Hydrochlorothiazide [Losartan-Hctz 100-25 mg Tab] 1 each PO DAILY 01/22 Lysine 1,000 mg PO DAILY 01/22/18 Metformin HCl [Metformin HCl ER] 500 mg PO BID 01/22/18 Rosuvastatin Calcium [Crestor] 40 mg PO HS 01/22/18 Turm/Ging/Jose/Yuc/Colin/Merno/Hor [Tumersaid Tablet] 1 each PO DAILY 01/22/18 Ubidecarenone/Vit E Acet [Co Q-10 100 mg Softgel] 1 each PO HS 01/22/18 Valacyclovir HCl [Valtrex] 1,000 mg PO DAILY 01/22/18 Review of Systems - Review of Systems Gastrointestinal: reports: Abdominal Pain Genitourinary: reports: Dysuria Physical Exam- Vital Signs: Vital Signs Temperature 98.2 F 01/26/18 05:55 Pulse Rate 59 L 01/26/18 05:55 Respiratory Rate 18 01/26/18 05:55 Blood Pressure 124/61 01/26/18 05:55 O2 Sat by Pulse Oximetry (%) 94 L 01/26/18 05:55 Gastrointestinal: Yes: WNL Renal/: Yes: WNL Kidneys: Yes: WNL Pelvis: Yes: WNL External Genitalia: Yes: WNL Labs: CBC, BMP 01/25/18 11:08 01/25/18 11:08 Imaging - Results Cat Scan: Report Reviewed, Image Reviewed Problem List - Problems (1) Hydronephrosis Assessment/Plan: ? due to passed stone, consider lasix nuclear renal scan Code(s): N13.30 - UNSPECIFIED HYDRONEPHROSIS (2) UTI (urinary tract infection) Assessment/Plan: await ur c+s, cont iv abxs Code(s): N39.0 - URINARY TRACT INFECTION, SITE NOT SPECIFIED
--- NOTE | 2018-01-26 08:18 | PN ---
Physical Exam: SUBJECTIVE: Patient seen and examined OBJECTIVE: Vital Signs Period Temp Pulse Resp BP Sys/Guy Pulse Ox Last 24 Hr 98.1 F-98.7 F 59-81 18-18 124-163/61-89 94-98 GENERAL: The patient is awake, alert, and fully oriented, in no acute distress. LUNGS: Breath sounds equal, clear to auscultation bilaterally, no wheezes, no crackles, no accessory muscle use. HEART: Regular rate and rhythm, S1, S2, no m/r/g ABDOMEN: Soft, nontender, nondistended, normoactive bowel sounds EXTREMITIES: 2+ pulses, warm, well-perfused, no edema. NEUROLOGICAL: Cranial nerves II through XII grossly intact. Normal speech, steady gait. Laboratory Results - last 24 hr 01/25/18 01/25/18 01/25/18 10:00 11:08 11:08 WBC 8.7 RBC 4.04 Hgb 11.0 Hct 34.4 MCV 85.2 MCH 27.4 MCHC 32.1 RDW 16.3 H Plt Count 451 H MPV 7.9 Absolute Neuts (auto) 6.1 Neutrophils % 71.0 Lymphocytes % 18.8 Monocytes % 5.3 Eosinophils % 4.3 Basophils % 0.6 Sodium 140 Potassium 4.4 Chloride 111 H Carbon Dioxide 25 Anion Gap 4 L BUN 16 Creatinine 1.7 H Creat Clearance w eGFR 29.63 POC Glucometer Random Glucose 121 H Calcium 9.2 Magnesium 2.0 Total Bilirubin 0.4 AST 19 ALT 14 Alkaline Phosphatase 46 Total Protein 6.1 L Albumin 3.0 L Urine Color Yellow Urine Appearance Clear Urine pH 5.0 Ur Specific Gray <= 1.005 L Urine Protein Negative Urine Glucose (UA) Trace Urine Ketones Negative Urine Blood Negative Urine Nitrite Positive Urine Bilirubin Negative Urine Urobilinogen 0.2 Ur Leukocyte Esterase 1+ H Urine RBC 2-5 Urine WBC 10-20 Ur Epithelial Cells 2+ Urine Bacteria 2+ 01/25/18 01/25/18 01/26/18 16:21 21:25 06:07 WBC RBC Hgb Hct MCV MCH MCHC RDW Plt Count MPV Absolute Neuts (auto) Neutrophils % Lymphocytes % Monocytes % Eosinophils % Basophils % Sodium Potassium Chloride Carbon Dioxide Anion Gap BUN Creatinine Creat Clearance w eGFR POC Glucometer 140 180 91 Random Glucose Calcium Magnesium Total Bilirubin AST ALT Alkaline Phosphatase Total Protein Albumin Urine Color Urine Appearance Urine pH Ur Specific Gray Urine Protein Urine Glucose (UA) Urine Ketones Urine Blood Urine Nitrite Urine Bilirubin Urine Urobilinogen Ur Leukocyte Esterase Urine RBC Urine WBC Ur Epithelial Cells Urine Bacteria Active Medications Generic Name Dose Route Start Last Admin Trade Name Freq PRN Reason Stop Dose Admin Acetaminophen 650 mg 01/23/18 06:50 01/24/18 06:27 Tylenol - PO 650 mg Q6H PRN Administration Fever Or Pain Aspirin 81 mg 01/23/18 10:00 01/25/18 10:14 Ecotrin - PO 81 mg DAILY KAREN Administration Docusate Sodium 100 mg 01/24/18 11:30 01/25/18 21:32 Colace - PO 100 mg BID KAREN Administration Fenofibric Acid 45 mg 01/23/18 22:00 01/25/18 21:34 Trilipix - PO 45 mg HS KAREN Administration Guaifenesin 10 ml 01/24/18 20:36 01/24/18 21:36 Robitussin Dm - PO 10 ml Q6H PRN Administration COUGH HCTZ/Losartan Potassium 2 tab 01/23/18 16:15 01/25/18 10:14 Hyzaar - PO 2 tab DAILY KAREN Administration Heparin Sodium (Porcine) 5,000 unit 01/25/18 22:00 01/26/18 06:22 Heparin - SQ 5,000 unit TID KAREN Administration Ceftriaxone Sodium 1,000 mg/ 50 mls @ 100 mls/hr 01/23/18 08:45 01/25/18 08: 25 Dextrose IVPB 100 mls/hr ONCE KAREN Administration Sodium Chloride 1,000 mls @ 100 mls/hr 01/24/18 10:30 01/24/18 10:40 Normal Saline - IV 100 mls/hr ASDIR KAREN Administration Insulin Aspart 1 vial 01/25/18 07:00 01/26/18 06:13 Novolog Vial Sliding Scale - SQ Not Given ACHS [facility] Protocol Insulin Detemir 54 units 01/23/18 22:00 01/25/18 21:32 Levemir Vial SQ 54 units HS KAREN Administration Non-Formulary Medication 30 mg 01/23/18 10:00 Apremilast [Otezla] PO BID KAREN Pantoprazole Sodium 20 mg 01/23/18 22:00 01/25/18 21:31 Protonix - PO 20 mg HS KAREN Administration Polyethylene Glycol 17 gm 12/02/18 11:30 01/25/18 10:14 Miralax (For Daily Use) - PO Not Given DAILY KAREN Rosuvastatin Calcium 40 mg 01/23/18 22:00 01/25/18 21:31 Crestor - PO 40 mg HS KAREN Administration ASSESSMENT/PLAN: 72 year-old woman with a PMH significant for HTN, HLD, IDDM, renal calculi (x 7 years), 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 Admitted for diffuse abdominal pain, likely multifactorial. 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 or retention secondary to constipation? urinating freely now, clear yellow urine Hypertension --BP stable --continue HCTZ/Losartan Hyperlipidemia --contnue Crestor, fenofibric acid IDDM --Levemir 54U qhs --Novolog sliding scale coverage Anemia secondary to lower GI bleed --6 years ago had EDG and colon with Dr. Jarrett at [place] as part of an anemia workup; found several small bleeding vessels in colon, cauterized; no further problems; there were no reported polyps --no signs or symptoms of GI bleed --h/h stable FEN Fluids: NS @ 100mL/hr Electrolytes: replete as indicatd Nutrition: diabetic, low sodium DVT prophylaxis: subq heparin Physical therapy Dispo: continues to require inpatient care. Full code.
[2018-01-26 08:37] LABS: ANION GAP 6 MMOL/L (8-16); BLOOD UREA NITROGEN 14 mg/dl (7-18); CALCIUM 9.1 mg/dl (8.4-10.2); CHLORIDE 111 mmol/L (98-107); CO2 26 mmol/L (22-28); CREATININE 1.3 mg/dl (0.6-1.3); GLUCOSE,RANDOM 84 mg/dl (74-106); MAGNESIUM 1.8 mg/dL (1.8-2.4); POTASSIUM 4.3 mmol/L (3.5-5.1); SODIUM 143 mmol/L (136-145)
[2018-01-26] MEDS ORDERED: PT OWN MED DRAWER 7, Y5N ONE ×2 (09:07→21:16)
[2018-01-26] MEDS: LOSARTAN 50MG/HCTZ 12.5MG 1 TAB (FP) PO SCH (09:43)
[2018-01-26] MEDS: DOCUSATE SODIUM 100 MG CAPSULE (FP) PO SCH ×2 (09:43→21:48)
[2018-01-26] MEDS: CEFTRIAXONE 1 G/50 ML PREMIX 50 ML IVPB SCH (09:43)
[2018-01-26] MEDS: SODIUM CHLORIDE 1,000 ML IV SCH (09:43)
[2018-01-26] MEDS: ASPIRIN COATED 81 MG TABLET.EC PO SCH (09:43)
[2018-01-26] MEDS: POLYETHYLENE GLYCOL 3350 119 GM BTL PO SCH (10:22)
[2018-01-26] MEDS: ACETAMINOPHEN 325 MG TABLET (FP) PO PRN (20:13)
[2018-01-26] MEDS: guaiFENesin/D-METHORPHAN HB 10 ML UNIT-DOSE CUPS PO PRN (20:14)
[2018-01-26] MEDS: INSULIN (LEVEMIR) 100 UNITS/ML UNITS SQ SCH (21:47)
[2018-01-26] MEDS: ROSUVASTATIN CA 40 MG TABLET PO SCH (21:48)
[2018-01-26] MEDS: PANTOPRAZOLE 20 MG TABLET (FP) PO SCH (21:49)
[2018-01-27] MEDS: FENOFIBRIC ACID 45 MG CAP PO SCH (00:22)
[2018-01-27] MEDS: HEPARIN NA (PORCINE) 5,000 UNITS/ML 1ML VIAL SQ SCH (06:38)
[2018-01-27] MEDS: INSULIN SLIDING SCALE (NOVOLOG) 1 VIAL SQ SCH ×2 (06:41→11:13)
[2018-01-27 07:51] LABS: BASO % 0.8 % (0-2.0); EOS % 2.8 % (0-4.5); HEMATOCRIT 35.9 % (32.4-45.2); HEMOGLOBIN 11.4 GM/dl (10.7-15.3); LYMPH % 28.9 % (8-40); MCH 27.1 pg (25.7-33.7); MCHC 31.6 g/dl (32.0-36.0); MEAN CELL VOLUME 85.5 fl (80-96); MEAN PLT VOLUME 7.5 fl (7.5-11.1); MONO % 6.8 % (3.8-10.2); NEUT % 60.7 % (42.8-82.8); PLATELET COUNT 487 K/MM3 (134-434); RDW 15.9 % (11.6-15.6); WHITE BLOOD COUNT 7.5 K/mm3 (4.0-10.8)
[2018-01-27] MEDS: INSULIN (LEVEMIR) 100 UNITS/ML UNITS SQ SCH (08:00)
[2018-01-27] MEDS: SODIUM CHLORIDE 1,000 ML IV SCH ×2 (08:00→09:58)
[2018-01-27 08:31] LABS: ALBUMIN 3.1 g/dl (3.5-5.0); ALK PHOS 49 U/L (32-92); ANION GAP 9 MMOL/L (8-16); BILIRUBIN,TOTAL 0.4 mg/dl (0.2-1.0); BLOOD UREA NITROGEN 14 mg/dl (7-18); CALCIUM 9.1 mg/dl (8.4-10.2); CHLORIDE 107 mmol/L (98-107); CO2 26 mmol/L (22-28); CREATININE 1.1 mg/dl (0.6-1.3); GLUCOSE,RANDOM 111 mg/dl (74-106); MAGNESIUM 1.7 mg/dL (1.8-2.4); POTASSIUM 4.5 mmol/L (3.5-5.1); SGOT/AST 19 U/L (10-42); SGPT/ALT 14 U/L (10-40); SODIUM 142 mmol/L (136-145); TOT PROT 6.3 g/dl (6.4-8.3)
[2018-01-27 09:55] VITALS: BP 141/82; PULSE 87; TEMP 98.5
[2018-01-27] MEDS: ASPIRIN COATED 81 MG TABLET.EC PO SCH (09:57)
[2018-01-27] MEDS: CEFTRIAXONE 1 G/50 ML PREMIX 50 ML IVPB SCH (09:57)
[2018-01-27] MEDS: DOCUSATE SODIUM 100 MG CAPSULE (FP) PO SCH (09:57)
[2018-01-27] MEDS: LOSARTAN 50MG/HCTZ 12.5MG 1 TAB (FP) PO SCH (09:57)
[2018-01-27] MEDS: POLYETHYLENE GLYCOL 3350 119 GM BTL PO SCH (09:58)
--- NOTE | 2018-01-27 12:52 | DS ---
Physical Exam: SUBJECTIVE: Patient seen and examined OBJECTIVE: Vital Signs Period Temp Pulse Resp BP Sys/Guy Pulse Ox Last 24 Hr 97.8 F-98.9 F 65-87 18-19 141-146/69-82 94-95 PHYSICAL EXAM GENERAL: The patient is awake, alert, and fully oriented, in no acute distress. HEAD: Normal with no signs of trauma. EYES: PERRL, extraocular movements intact, sclera anicteric, conjunctiva clear. ENT: Ears normal, nares patent, oropharynx clear without exudates, moist mucous membranes. NECK: Trachea midline, full range of motion, supple. LUNGS: Breath sounds equal, clear to auscultation bilaterally, no wheezes, no crackles, no accessory muscle use. HEART: Regular rate and rhythm, S1, S2 without murmur, rub or gallop. ABDOMEN: Soft, nontender, nondistended, normoactive bowel sounds, no guarding, no rebound, no hepatosplenomegaly, no masses. EXTREMITIES: 2+ pulses, warm, well-perfused, no edema. NEUROLOGICAL: Cranial nerves II through XII grossly intact. Normal speech, gait not observed. PSYCH: Normal mood, normal affect. SKIN: Warm, dry, normal turgor, no rashes or lesions noted. LABS Laboratory Results - last 24 hr 01/26/18 01/26/18 01/27/18 16:37 21:05 01:50 WBC RBC Hgb Hct MCV MCH MCHC RDW Plt Count MPV Absolute Neuts (auto) Neutrophils % Lymphocytes % Monocytes % Eosinophils % Basophils % Sodium Potassium Chloride Carbon Dioxide Anion Gap BUN Creatinine Creat Clearance w eGFR POC Glucometer 141 188 86 Random Glucose Calcium Magnesium Total Bilirubin AST ALT Alkaline Phosphatase Total Protein Albumin 01/27/18 01/27/18 01/27/18 06:36 07:42 07:42 WBC 7.5 RBC 4.20 Hgb 11.4 Hct 35.9 MCV 85.5 MCH 27.1 MCHC 31.6 L RDW 15.9 H Plt Count 487 H MPV 7.5 Absolute Neuts (auto) 4.5 Neutrophils % 60.7 Lymphocytes % 28.9 Monocytes % 6.8 Eosinophils % 2.8 Basophils % 0.8 Sodium 142 Potassium 4.5 Chloride 107 Carbon Dioxide 26 Anion Gap 9 BUN 14 Creatinine 1.1 Creat Clearance w eGFR 48.96 POC Glucometer 123 Random Glucose 111 H D Calcium 9.1 Magnesium 1.7 L Total Bilirubin 0.4 AST 19 ALT 14 Alkaline Phosphatase 49 Total Protein 6.3 L Albumin 3.1 L HOSPITAL COURSE: Date of Admission:01/22/18 Date of Discharge: 01/27/18 Minutes to complete discharge: 35 Discharge Summary Reason For Visit: ABDOMINAL PAIN. Current Active Problems Abdominal pain (Acute) Hydronephrosis (Acute) UTI (urinary tract infection) (Acute) Condition: Good - Instructions Referrals: Arya Butcher MD [Staff Physician] - Disposition: HOME - Home Medications Comprehensive Discharge Medication List: Ambulatory Orders Apremilast [Otezla] 30 mg PO BID 01/22/18 Aspirin [Ecotrin] 81 mg PO DAILY 01/22/18 Esomeprazole Magnesium [Nexium 24Hr] 20 mg PO HS 01/22/18 Fenofibrate Nanocrystallized [Fenofibrate] 48 mg PO HS 01/22/18 Insulin Detemir [Levemir Flextouch] 54 unit SQ HS 01/22/18 Losartan/Hydrochlorothiazide [Losartan-Hctz 100-25 mg Tab] 1 each PO DAILY 01/22 Lysine 1,000 mg PO DAILY 01/22/18 Metformin HCl [Metformin HCl ER] 500 mg PO BID 01/22/18 Rosuvastatin Calcium [Crestor] 40 mg PO HS 01/22/18 Turm/Ging/Jose/Yuc/Colin/Meron/Hor [Tumersaid Tablet] 1 each PO DAILY 01/22/18 Ubidecarenone/Vit E Acet [Co Q-10 100 mg Softgel] 1 each PO HS 01/22/18 Valacyclovir HCl [Valtrex] 1,000 mg PO DAILY 01/22/18 This patient is new to me today: No Emergency Visit: Yes ED Registration Date: 01/22/18 Care time: The patient presented to the Emergency Department on the above date and was hospitalized for further evaluation of their emergent condition. Critical Care patient: No - Discharge Referral Referred to [facility] Med P.C.: No
== END 2018-01-27 12:30 | disposition home or self-care (01) | DRG 690 ==
LOC: FER 18:19 → FM/S 22:32 → UNDOADMIN 01-23 00:44 → FM/S 01-26 16:18
PROVIDERS: ADMIT Internal Medicine; ATTEND Nurse Practitioner Acute Care
DX: N39.0 Urinary tract infection, site not specified (principal); N17.9 Acute kidney failure, unspecified; I10 Essential (primary) hypertension; E11.9 Type 2 diabetes mellitus without complications; E78.5 Hyperlipidemia, unspecified; N13.30 Unspecified hydronephrosis; K59.00 Constipation, unspecified; R91.1 Solitary pulmonary nodule; D72.829 Elevated white blood cell count, unspecified; B00.1 Herpesviral vesicular dermatitis
CPT/HCPCS: 36415; 71045-TC-FY; 74177-TC; 76775-TC; 78708-TC; 80048; 80053; 81003; 81015; 82962; 83605; 83735; 84484; 85025; 85610; 85730; 87040; 87086; 93005; 97116-GP; 97162-GP; 99284-25; A9562; J0131; J1644; J7030

== ENCOUNTER 2023-02-23 15:18 | Emergency (ER) | payer OTHER, MEDICARE ==
[2023-02-23 16:53] VITALS: BMI 25.0
[2023-02-23 17:01] LABS: HEMATOCRIT 34.8 % (32.4-45.2); HEMOGLOBIN 11.1 G/dL (10.7-15.3); MCH 24.7 pg (25.7-33.7); MCHC 31.8 g/dl (32.0-36.0); MEAN CELL VOLUME 77.8 fl (80-96); MEAN PLT VOLUME 7.6 fl (7.5-11.1); PLATELET COUNT 472.2 10^3/uL (134-434); RBC 4.47 10^6/uL (3.60-5.2); RDW 17.8 % (11.6-15.6); WHITE BLOOD COUNT 10.1 10^3/uL (4.0-10.8)
[2023-02-23 17:21] LABS: ALBUMIN 4.2 g/dl (3.4-5.0); BILIRUBIN,TOTAL 0.6 mg/dl (0.2-1); CALCIUM 10.2 mg/dl (8.5-10.1); CREATININE 1.1 mg/dl (0.6-1.3); POTASSIUM 4.1 mmol/L (3.5-5.1); TOT PROT 6.6 g/dl (6.4-8.2)
[2023-02-23 17:25] LABS: PLATELET ESTIMATE SLT INCREASE
[2023-02-23] MEDS ORDERED: SODIUM CHLORIDE 0.9% 500 ML INFUS.BAG IV ONE (17:38)
[2023-02-23] MEDS ORDERED: ACETAMINOPHEN 1000 MG/100 ML BAG IVPB ONE (18:29)
[2023-02-23] MEDS ORDERED: ACETAMINOPHEN INJECTION 100 ML IVPB ONE (18:31)
[2023-02-23 19:28] VITALS: BP 121/57; PULSE 79; RESP 16; TEMP 98
== END 2023-02-23 19:15 | disposition home or self-care (01) ==
LOC: FER 15:18
PROC: 3E033NZ Introduction of Analgesics, Hypnotics, Sedatives into Peripheral Vein, Percutaneous Approach (ICD-10-PCS; principal; 2023-02-23)
DX: R53.1 Weakness (principal); R06.02 Shortness of breath; U07.1 COVID-19; R05.9 Cough, unspecified; R09.81 Nasal congestion; R53.81 Other malaise
CPT/HCPCS: 0241U-QW; 36415; 71045-TC-FY; 80053; 84484; 85027; 93005; 99285-25

== ENCOUNTER 2024-01-22 15:48 | Observation (INO) | payer OTHER, MEDICARE ==
[2024-01-22 16:07] VITALS: BMI 25.7
[2024-01-22 17:06] LABS: HEMATOCRIT 31.1 % (32.4-45.2); HEMOGLOBIN 9.8 G/dL (10.7-15.3); MCH 24.2 pg (25.7-33.7); MCHC 31.5 g/dl (32.0-36.0); MEAN CELL VOLUME 76.9 fl (80-96); RBC 4.05 10^6/uL (3.60-5.2); RDW 18.9 % (11.6-15.6); WHITE BLOOD COUNT 9.8 10^3/uL (4.0-10.8)
[2024-01-22] MEDS ORDERED: ACETAMINOPHEN 325 MG TABLET (FP) ONE (17:18)
[2024-01-22] MEDS ORDERED: ACETAMINOPHEN 500 MG TABLET (FP) ONE (17:20)
[2024-01-22 17:34] LABS: ALBUMIN 3.9 g/dl (3.4-5.0); ALK PHOS 44 U/L (45-117); ANION GAP 9 mmol/L (4-13); BILIRUBIN,TOTAL 0.3 mg/dl (0.2-1); CALCIUM 10.3 mg/dl (8.5-10.1); CHLORIDE 103 mmol/L (98-107); CO2 26 mmol/L (21-32); GLUCOSE,RANDOM 154 mg/dl (74-106); SGOT/AST 14 U/L (15-37); SGPT/ALT 8 U/L (7-52); SODIUM 138 mmol/L (136-145); TOT PROT 6.5 g/dl (6.4-8.2)
[2024-01-22] MEDS: ACETAMINOPHEN 500 MG TABLET (FP) PO ONE (17:35)
[2024-01-22 17:36] LABS: PLATELET ESTIMATE SLT INCREASE
[2024-01-22 18:21] LABS: INR 1.11 (0.83-1.09); PROTHROMBIN TIME (PATIENT) 12.6 SEC (9.7-13.0)
[2024-01-22 18:23] LABS: ACTIVATED PTT 30.6 SECONDS (25.2-36.5)
[2024-01-22] MEDS ORDERED: ENOXAPARIN NA (PORCINE) 100 MG/1 ML DISP.SYRIN SQ ONE (19:30)
[2024-01-22] MEDS: ENOXAPARIN NA (PORCINE) 60 MG/0.6 ML DISP.SYRIN SQ STA (19:34)
[2024-01-22] MEDS: INSULIN ASPART SLIDING SCALE (NOVOLOG) 1 VIAL SQ SCH (21:24)
[2024-01-22] MEDS: ROSUVASTATIN CA 20 MG TABLET PO SCH (23:45)
[2024-01-22] MEDS: diazePAM 2 MG TABLET PO PRN (23:45)
[2024-01-23 00:55] VITALS: RESP 18
[2024-01-23 08:27] LABS: INR 1.15 (0.83-1.09); PROTHROMBIN TIME (PATIENT) 13.1 SEC (9.7-13.0)
[2024-01-23] MEDS: ENOXAPARIN NA (PORCINE) 80 MG/0.8 ML DISP.SYRIN SQ SCH (09:16)
[2024-01-23] MEDS: LOSARTAN POTASSIUM 50 MG TABLET PO SCH (09:20)
[2024-01-23 09:52] LABS: CALCIUM 9.8 mg/dl (8.5-10.1); CREATININE 1.1 mg/dl (0.6-1.3); POTASSIUM 4.6 mmol/L (3.5-5.1)
[2024-01-23 11:35] LABS: BASO % 1.2 % (0-2.0); EOS % 7.4 % (0-4.5); HEMATOCRIT 28.1 % (32.4-45.2); HEMOGLOBIN 8.6 GM/dL (10.7-15.3); LYMPH % 36.3 % (8-40); MCH 23.4 pg (25.7-33.7); MCHC 30.6 g/dl (32.0-36.0); MEAN CELL VOLUME 76.4 fl (80-96); MEAN PLT VOLUME 7.2 fl (7.5-11.1); NEUT % 49.1 % (42.8-82.8); PLATELET COUNT 459 10^3/uL (134-434); RBC 3.67 M/mm3 (3.60-5.2); RDW 18.8 % (11.6-15.6); WHITE BLOOD COUNT 7.8 K/mm3 (4.0-10.0)
[2024-01-23] MEDS: APIXABAN 5 MG TABLET PO SCH (22:37)
[2024-01-24 08:46] LABS: HEMATOCRIT 29.7 % (32.4-45.2); HEMOGLOBIN 9.2 G/dL (10.7-15.3); MCH 24.2 pg (25.7-33.7); MEAN CELL VOLUME 78.1 fl (80-96); MEAN PLT VOLUME 8.1 fl (7.5-11.1); PLATELET COUNT 462.7 10^3/uL (134-434); RDW 17.9 % (11.6-15.6); WHITE BLOOD COUNT 7.7 10^3/uL (4.0-10.8)
[2024-01-24 10:04] VITALS: BP 109/86; PULSE 69; TEMP 97.9
[2024-01-24 11:24] LABS: ALBUMIN 3.6 g/dl (3.4-5.0); CALCIUM 9.8 mg/dl (8.5-10.1); PHOSPHOROUS 3.5 (2.5-4.9); POTASSIUM 4.4 mmol/L (3.5-5.1); TOT PROT 6.1 g/dl (6.4-8.2)
[2024-01-24 15:55] LABS: BILIRUBIN,TOTAL 0.2 mg/dL (0.2-1)
== END 2024-01-24 11:17 | disposition home or self-care (01) ==
LOC: FER 15:48 → FM/S 17:41 → UNDOADMOB 17:41
PROVIDERS: ADMIT Internal Medicine; ATTEND Internal Medicine
PROC: 3E023GC Introduction of Other Therapeutic Substance into Muscle, Percutaneous Approach (ICD-10-PCS; principal; 2024-01-22)
PROC: 3E013VG Introduction of Insulin into Subcutaneous Tissue, Percutaneous Approach (ICD-10-PCS; 2024-01-22)
DX: I82.412 Acute embolism and thrombosis of left femoral vein (principal); I10 Essential (primary) hypertension; E78.5 Hyperlipidemia, unspecified; E11.9 Type 2 diabetes mellitus without complications; Z96.642 Presence of left artificial hip joint; Z87.442 Personal history of urinary calculi; Z96.641 Presence of right artificial hip joint; D64.9 Anemia, unspecified; Z88.2 Allergy status to sulfonamides; Z88.8 Allergy status to other drugs, medicaments and biological substances
CPT/HCPCS: 36415; 80048; 80053; 82272; 82962; 83735; 84100; 85025; 85027; 85610; 85730; 86850; 86900; 86901; 93005; 93971-TC; 96372; 99285-25; G0378